=== PATIENT | male | born 1955 | race Caucasian/White ===

== ENCOUNTER 2016-08-15 14:12 | Emergency (ER) | payer MEDICAID, SELFPAY ==
[~2016-08-15] VITALS: Ht 180.3 cm; Wt 74.5 kg
[2016-08-15] MEDS ORDERED: ONDANSETRON 2MG/ML, 2ML IVPush ONE (15:30)
[2016-08-15] MEDS ORDERED: SODIUM CHLORIDE 0.9% 1,000ML IVBOLUS ONE (15:30)
[2016-08-15 16:02] LABS: HEMOGLOBIN 17.6 g/dL (13.7-18.0)
[2016-08-15 16:11] LABS: BLOOD UREA NITROGEN 10 mg/dL (7-18)
[2016-08-15 16:16] LABS: ASPARTATE AMINO TRANSFERASE 31 U/L (15-37)
[2016-08-15 16:17] LABS: IS PT STATUS REG ER OR PRE ER? YES
[2016-08-15] MEDS ORDERED: ONDANSETRON 2MG/ML, 2ML ONE (17:11)
[2016-08-15] MEDS ORDERED: DIPHENHYDRAMINE 50 MG/ML, 1ML IVPush ONE (17:30)
[2016-08-15] MEDS ORDERED: PROCHLORPERAZINE 5 MG/ML, 2ML IV ONE (17:30)
[2016-08-15] MEDS ORDERED: DIPHENHYDRAMINE 50 MG/ML, 1ML ONE (17:35)
[2016-08-15] MEDS ORDERED: PROCHLORPERAZINE 5 MG/ML, 2ML ONE (17:35)
[2016-08-15 20:03] VITALS: BP 138/97
== END 2016-08-15 20:06 | disposition home or self-care (01) ==
LOC: ED 18:56
DX: E86.0 Dehydration (principal); R11.2 Nausea with vomiting, unspecified; R51 Headache; H53.8 Other visual disturbances; R10.84 Generalized abdominal pain; Z98.890 Other specified postprocedural states
CPT/HCPCS: 36415; 70450; 74022; 80053; 84484; 85025; 93005; 96374; 96375; 99285; J0780; J1200; J2405; J7030

== ENCOUNTER 2019-03-13 07:22 | Inpatient (IN) | payer MEDICAID ==
[~2019-03-13] VITALS: Ht 180.3 cm; Wt 77.7 kg
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
--- NOTE | 2019-03-13 07:48 | NUR ---
PIV INITIATED, LABS DRAWN AND SENT TO LAB. ATTEMPTED TO OBTAIN UA, PT STAES " IM INTOO MUCH PAIN TO GO". PT MEDICATED PER JUL, TECH HERE TO TAKE PT TO CT
[2019-03-13] MEDS ORDERED: ONDANSETRON 2MG/ML, 2ML ONE (07:49)
[2019-03-13] MEDS ORDERED: HYDROmorphone 1 MG/ML, 1ML VIAL ONE ×2 (07:49→09:49)
[2019-03-13] MEDS: HYDROmorphone 2 MG/ML, 1ML IVPush PRN ×2 (07:51→09:52)
[2019-03-13 07:54] LABS: BASOPHILS # (AUTO) 0.03 x10^3/uL (0-0.1); BASOPHILS % (AUTO) 0 % (0-1); EOSINOPHILS # (AUTO) 0.02 x10^3/uL (0-0.4); EOSINOPHILS % (AUTO) 0 % (1-7); LYMPHOCYTES # (AUTO) 0.64 x10^3/uL (1-3.4); LYMPHOCYTES % (AUTO) 4 % (22-44); MD NO; MEAN CORPUSCULAR HEMOGLOBIN 29.2 pg (27.5-34.5); MEAN CORPUSCULAR HGB CONC 33.4 g/dL (33.2-36.2); MEAN CORPUSCULAR VOLUME 87.2 fL (81-97); MEAN PLATELET VOLUME 7.3 fL (7.4-10.4); MONOCYTES # (AUTO) 1.21 x10^3/uL (0.2-0.8); MONOCYTES % (AUTO) 8 % (2-9); NEUTROPHILS # (AUTO) 13.76 x10^3/uL (1.8-6.8); NEUTROPHILS % (AUTO) 88 % (42-75); PLATELET COUNT 232 x10^3/uL (130-400); RED BLOOD COUNT 5.41 x10^6/uL (4.38-5.82); RED CELL DISTRIBUTION WIDTH 15.1 % (9.4-14.8)
[2019-03-13] MEDS ORDERED: SODIUM CHLORIDE FLUSH 10ML SYR IVF ONE (08:00)
[2019-03-13] MEDS ORDERED: ONDANSETRON 2MG/ML, 2ML IVPush ONE (08:00)
[2019-03-13 08:04] LABS: ALBUMIN 3.3 g/dL (3.4-5.0); ANION GAP 6 mmol/L (5-15); CALCIUM 9.3 mg/dL (8.5-10.1); CHLORIDE 108 mmol/L (98-107); CREATININE 1.32 mg/dL (0.7-1.3)
[2019-03-13 08:30] LABS: MICROSCOPIC INDICATED
[2019-03-13 08:36] LABS: CULTURE INDICATED? YES
--- NOTE | 2019-03-13 08:41 | NUR ---
PT BACK FROM CT, PT APPEARS MUCH MORE COMFORTABLE, RESTING ON BED. FRIEND AT BEDSIDE, ROGER NOTED
[2019-03-13] MEDS ORDERED: CEFTRIAXONE PMX 2GM/50ML 50 ML IV SCH (09:30)
--- NOTE | 2019-03-13 09:32 | NUR ---
PT RESTING ON ROGER MEDINA NOTED AT THIS TIME, ADDITIONAL ORDERS RECIEVED. AWAITING BC TO BE DRAWN TO MEDICATE PT.
[2019-03-13] MEDS ORDERED: CEFTRIAXONE PMX 2GM/50ML 50 ML ONE (09:49)
--- NOTE | 2019-03-13 10:13 | NUR ---
PT WITH ADMISSION ORDERS, MEDICATED AGAIN FOR PAIN PER NORMAN, ABRIL PINA. NAD NOTED
--- NOTE | 2019-03-13 10:29 | NUR ---
ADMITTING MD IN TO SEE PT
[2019-03-13] MEDS ORDERED: SODIUM CHLORIDE FLUSH 10ML SYR IVF PRN (10:30)
--- NOTE | 2019-03-13 10:52 | NUR ---
REPORT GIVEN TO RECRENEE PIMENTEL
[2019-03-13] MEDS ORDERED: ACETAMINOPHEN 325 MG TABLET PO PRN (11:00)
[2019-03-13 11:38] VITALS: BP 173/75
[2019-03-13] MEDS: morphine SULFATE 10 MG/ML, 1ML IVPush PRN ×3 (11:44→12:13)
[2019-03-13] MEDS: SODIUM CHLORIDE 0.9% 1,000 ML IV SCH ×2 (11:45→18:47)
[2019-03-13] MEDS: CEFTRIAXONE PMX 2GM/50ML 50 ML IV SCH (12:00)
[2019-03-13] MEDS: hydrALAzine 20 MG/ML, 1ML IVPush PRN (12:03)
[2019-03-13] MEDS: NICOTINE 21 MG/24 HR PATCH.TD24 TD SCH (12:13)
[2019-03-13 13:40] VITALS: BP 153/101
[2019-03-13] MEDS ORDERED: FENTANYL PF 100 MCG/2ML ONE (14:57)
[2019-03-13] MEDS ORDERED: ACETAMINOPHEN 500 MG TABLET PO ONE (15:00)
[2019-03-13] MEDS ORDERED: FENTANYL PF 100 MCG/2ML IV PRN (16:00)
[2019-03-13] MEDS ORDERED: ONDANSETRON 2MG/ML, 2ML IV PRN (16:00)
[2019-03-13] MEDS ORDERED: LABETALOL 5MG/ML, 20ML IV PRN (16:00)
[2019-03-13] MEDS ORDERED: MEPERIDINE/PF 25MG/ML,1ML IVPush PRN (16:00)
[2019-03-13] MEDS ORDERED: hydrALAzine 20 MG/ML, 1ML IV PRN (16:00)
[2019-03-13] MEDS ORDERED: EPHEDRINE 50 MG/ML, 1ML IVPush PRN (16:00)
[2019-03-13] MEDS ORDERED: HYDROmorphone 2 MG/ML, 1ML IVPush PRN (16:00)
[2019-03-13] MEDS ORDERED: OXYcodone 5 MG/5 ML ORAL.SOL UDC PO PRN (16:00)
[2019-03-13] MEDS ORDERED: PROMETHAZINE 25 MG/ML, 1ML IV PRN (16:00)
[2019-03-13] MEDS ORDERED: LIDOCAINE-MPF 2% ,5ML ONE (16:09)
[2019-03-13] MEDS ORDERED: PHENYLEPHRINE 10 MG/ML ONE (16:09)
[2019-03-13] MEDS ORDERED: PROPOFOL 10 MG/ML, 20ML ONE (16:09)
[2019-03-13] MEDS ORDERED: DEXAMETHASONE 4 MG/ML, 1ML ONE (16:09)
[2019-03-13] MEDS: METOPROLOL TARTRATE 25 MG TABLET PO SCH (18:48)
[2019-03-14] MEDS: SODIUM CHLORIDE 0.9% 1,000 ML IV SCH ×4 (02:19→23:25)
[2019-03-14 04:44] LABS: MEAN CORPUSCULAR HEMOGLOBIN 28.7 pg (27.5-34.5); MEAN CORPUSCULAR HGB CONC 32.3 g/dL (33.2-36.2); MEAN CORPUSCULAR VOLUME 89.1 fL (81-97); MEAN PLATELET VOLUME 7.8 fL (7.4-10.4); PLATELET COUNT 181 x10^3/uL (130-400); RED BLOOD COUNT 5.28 x10^6/uL (4.38-5.82)
[2019-03-14 04:56] LABS: ALANINE AMINOTRANSFERASE 28 U/L (12-78); ALBUMIN 2.5 g/dL (3.4-5.0); ANION GAP 5 mmol/L (5-15); CALCIUM 8.9 mg/dL (8.5-10.1); CHLORIDE 114 mmol/L (98-107); CREATININE 1.21 mg/dL (0.7-1.3)
[2019-03-14 04:58] LABS: ALKALINE PHOSPHATASE 91 U/L (45-117); BILIRUBIN,TOTAL 0.8 mg/dL (0.2-1.0); TOTAL PROTEIN 6.4 g/dL (6.4-8.2)
[2019-03-14 05:02] LABS: BASOPHILS # (AUTO) 0.01 x10^3/uL (0-0.1); BASOPHILS % (AUTO) 0 % (0-1); EOSINOPHILS # (AUTO) 0.03 x10^3/uL (0-0.4); EOSINOPHILS % (AUTO) 0 % (1-7); LYMPHOCYTES # (AUTO) 0.66 x10^3/uL (1-3.4); LYMPHOCYTES % (AUTO) 3 % (22-44); MD SCAN; MONOCYTES # (AUTO) 1.19 x10^3/uL (0.2-0.8); MONOCYTES % (AUTO) 6 % (2-9); NEUTROPHILS # (AUTO) 19.76 x10^3/uL (1.8-6.8); NEUTROPHILS % (AUTO) 91 % (42-75)
[2019-03-14] MEDS: METOPROLOL TARTRATE 25 MG TABLET PO SCH ×2 (06:21→17:44)
[2019-03-14] MEDS: NICOTINE 21 MG/24 HR PATCH.TD24 TD SCH (13:11)
[2019-03-14] MEDS: CEFTRIAXONE PMX 2GM/50ML 50 ML IV SCH (13:14)
[2019-03-14] MEDS: METHOCARBAMOL 500 MG TABLET PO PRN (20:16)
[2019-03-14] MEDS: morphine SULFATE 10 MG/ML, 1ML IVPush PRN (20:53)
[2019-03-15] MEDS ORDERED: ONDANSETRON 2MG/ML, 2ML IVPush PRN
[2019-03-15] MEDS: morphine SULFATE 10 MG/ML, 1ML IVPush PRN ×4 (00:16→11:52)
[2019-03-15 01:14] VITALS: BP 112/74
[2019-03-15 05:28] LABS: MEAN CORPUSCULAR HGB CONC 32.7 g/dL (33.2-36.2); MEAN CORPUSCULAR VOLUME 88.6 fL (81-97); MEAN PLATELET VOLUME 7.8 fL (7.4-10.4); PLATELET COUNT 178 x10^3/uL (130-400); RED BLOOD COUNT 4.63 x10^6/uL (4.38-5.82)
[2019-03-15 05:39] LABS: ANION GAP 5 mmol/L (5-15); CALCIUM 8.6 mg/dL (8.5-10.1); CHLORIDE 113 mmol/L (98-107)
[2019-03-15 05:40] LABS: CREATININE 0.88 mg/dL (0.7-1.3)
[2019-03-15 05:52] LABS: BASOPHILS # (AUTO) 0.02 x10^3/uL (0-0.1); BASOPHILS % (AUTO) 0 % (0-1); EOSINOPHILS # (AUTO) 0.03 x10^3/uL (0-0.4); EOSINOPHILS % (AUTO) 0 % (1-7); LYMPHOCYTES # (AUTO) 0.97 x10^3/uL (1-3.4); LYMPHOCYTES % (AUTO) 6 % (22-44); MD SCAN; MONOCYTES # (AUTO) 1.34 x10^3/uL (0.2-0.8); MONOCYTES % (AUTO) 8 % (2-9); NEUTROPHILS # (AUTO) 13.71 x10^3/uL (1.8-6.8); NEUTROPHILS % (AUTO) 85 % (42-75)
[2019-03-15] MEDS: METOPROLOL TARTRATE 25 MG TABLET PO SCH ×2 (06:40→18:19)
[2019-03-15 07:34] VITALS: BP 119/72
[2019-03-15] MEDS: METHOCARBAMOL 500 MG TABLET PO PRN (09:34)
[2019-03-15] MEDS ORDERED: OPIUM/BELLADONNA SUPP.RECT 16.2-30 MG PR PRN (11:00)
[2019-03-15 12:18] VITALS: BP 156/96
[2019-03-15] MEDS: CEFTRIAXONE PMX 2GM/50ML 50 ML IV SCH (12:52)
[2019-03-15] MEDS: NICOTINE 21 MG/24 HR PATCH.TD24 TD SCH (12:52)
[2019-03-15 18:09] VITALS: BP 152/74
[2019-03-15] MEDS: HYDROcodone/APAP 5/325 TABLET PO PRN ×2 (18:18→22:46)
[2019-03-15 18:31] VITALS: BP 106/61
[2019-03-15] MEDS: PIPERACILLIN/TAZO/PMX 3.375GM 50 ML IV SCH (19:21)
[2019-03-16] VITALS (8 sets, daily range): BP systolic 116–196; BP diastolic 71–107
[2019-03-16] MEDS: PIPERACILLIN/TAZO/PMX 3.375GM 50 ML IV SCH ×4 (01:17→21:45)
[2019-03-16] MEDS: HYDROcodone/APAP 5/325 TABLET PO PRN ×2 (02:52→07:11)
[2019-03-16] MEDS: SODIUM CHLORIDE 0.9% 1,000 ML IV SCH ×2 (05:01→21:46)
[2019-03-16 05:37] LABS: CHLORIDE 111 mmol/L (98-107)
[2019-03-16 05:45] LABS: BASOPHILS # (AUTO) 0.02 x10^3/uL (0-0.1); BASOPHILS % (AUTO) 0 % (0-1); EOSINOPHILS # (AUTO) 0.12 x10^3/uL (0-0.4); EOSINOPHILS % (AUTO) 1 % (1-7); LYMPHOCYTES # (AUTO) 1.16 x10^3/uL (1-3.4); LYMPHOCYTES % (AUTO) 11 % (22-44); MD NO; MEAN CORPUSCULAR HEMOGLOBIN 29.3 pg (27.5-34.5); MEAN CORPUSCULAR HGB CONC 32.8 g/dL (33.2-36.2); MEAN CORPUSCULAR VOLUME 89.2 fL (81-97); MEAN PLATELET VOLUME 8.4 fL (7.4-10.4); MONOCYTES # (AUTO) 1.13 x10^3/uL (0.2-0.8); MONOCYTES % (AUTO) 11 % (2-9); NEUTROPHILS # (AUTO) 8.03 x10^3/uL (1.8-6.8); NEUTROPHILS % (AUTO) 77 % (42-75); PLATELET COUNT 183 x10^3/uL (130-400); RED BLOOD COUNT 4.47 x10^6/uL (4.38-5.82)
[2019-03-16 05:52] LABS: ANION GAP 8 mmol/L (5-15); CALCIUM 8.8 mg/dL (8.5-10.1); CREATININE 0.95 mg/dL (0.7-1.3)
[2019-03-16] MEDS: METOPROLOL TARTRATE 25 MG TABLET PO SCH ×2 (06:52→17:06)
[2019-03-16] MEDS: hydrALAzine 20 MG/ML, 1ML IVPush PRN (15:08)
[2019-03-16] MEDS: morphine SULFATE 10 MG/ML, 1ML IVPush PRN ×3 (15:41→16:35)
[2019-03-16 15:58] LABS: TROPONIN I < 0.015 ng/mL (0.000-0.045)
[2019-03-16] MEDS ORDERED: OMNIPAQUE 350 MG/ML, 100ML BOTTLE ONE (16:28)
[2019-03-16] MEDS: NICOTINE 21 MG/24 HR PATCH.TD24 TD SCH (17:06)
[2019-03-16 22:16] LABS: TROPONIN I < 0.015 ng/mL (0.000-0.045)
[2019-03-17 01:00] VITALS: BP 129/79
[2019-03-17] MEDS: SODIUM CHLORIDE 0.9% 1,000 ML IV SCH ×2 (02:39→12:45)
[2019-03-17] MEDS: PIPERACILLIN/TAZO/PMX 3.375GM 50 ML IV SCH ×4 (03:53→21:07)
[2019-03-17 03:57] LABS: BASOPHILS # (AUTO) 0.05 x10^3/uL (0-0.1); BASOPHILS % (AUTO) 1 % (0-1); EOSINOPHILS # (AUTO) 0.09 x10^3/uL (0-0.4); EOSINOPHILS % (AUTO) 1 % (1-7); LYMPHOCYTES # (AUTO) 1.25 x10^3/uL (1-3.4); LYMPHOCYTES % (AUTO) 14 % (22-44); MD NO; MEAN CORPUSCULAR HEMOGLOBIN 29.6 pg (27.5-34.5); MEAN CORPUSCULAR HGB CONC 33.6 g/dL (33.2-36.2); MEAN CORPUSCULAR VOLUME 88.2 fL (81-97); MEAN PLATELET VOLUME 7.7 fL (7.4-10.4); MONOCYTES # (AUTO) 1.29 x10^3/uL (0.2-0.8); MONOCYTES % (AUTO) 14 % (2-9); NEUTROPHILS # (AUTO) 6.38 x10^3/uL (1.8-6.8); NEUTROPHILS % (AUTO) 71 % (42-75); PLATELET COUNT 219 x10^3/uL (130-400); RED BLOOD COUNT 4.75 x10^6/uL (4.38-5.82); RED CELL DISTRIBUTION WIDTH 15.4 % (9.4-14.8)
[2019-03-17 04:09] LABS: ALANINE AMINOTRANSFERASE 45 U/L (12-78); ALBUMIN 2.3 g/dL (3.4-5.0); ANION GAP 8 mmol/L (5-15); CALCIUM 8.8 mg/dL (8.5-10.1); CHLORIDE 111 mmol/L (98-107)
[2019-03-17 04:14] LABS: ALKALINE PHOSPHATASE 96 U/L (45-117); BILIRUBIN,TOTAL 1.4 mg/dL (0.2-1.0); CREATININE 0.93 mg/dL (0.7-1.3); TOTAL PROTEIN 6.4 g/dL (6.4-8.2); TROPONIN I < 0.015 ng/mL (0.000-0.045)
[2019-03-17 07:04] VITALS: BP 151/81
[2019-03-17] MEDS: METOPROLOL TARTRATE 25 MG TABLET PO SCH ×2 (08:00→17:39)
[2019-03-17] MEDS: NICOTINE 21 MG/24 HR PATCH.TD24 TD SCH (13:00)
[2019-03-17] MEDS ORDERED: ZIPRASIDONE 20 MG INJ IM PRN (17:30)
[2019-03-17] MEDS: ENOXAPARIN 40 MG/0.4 ML SQ SCH (21:07)
[2019-03-17 21:48] VITALS: BP 156/99
[2019-03-18 00:28] VITALS: BP 168/99
[2019-03-18] MEDS: SODIUM CHLORIDE 0.9% 1,000 ML IV SCH ×2 (02:45→14:13)
[2019-03-18] MEDS: PIPERACILLIN/TAZO/PMX 3.375GM 50 ML IV SCH ×4 (02:45→20:33)
[2019-03-18] MEDS: METOPROLOL TARTRATE 25 MG TABLET PO SCH ×2 (03:44→18:33)
[2019-03-18 05:10] LABS: MEAN CORPUSCULAR HEMOGLOBIN 29.2 pg (27.5-34.5); MEAN CORPUSCULAR HGB CONC 33.5 g/dL (33.2-36.2); MEAN CORPUSCULAR VOLUME 87.3 fL (81-97); MEAN PLATELET VOLUME 7.7 fL (7.4-10.4); PLATELET COUNT 253 x10^3/uL (130-400); RED BLOOD COUNT 5.03 x10^6/uL (4.38-5.82); RED CELL DISTRIBUTION WIDTH 15.3 % (9.4-14.8)
[2019-03-18 05:23] LABS: ANION GAP 11 mmol/L (5-15); CHLORIDE 110 mmol/L (98-107)
[2019-03-18 05:28] LABS: ALANINE AMINOTRANSFERASE 33 U/L (12-78); ALBUMIN 2.4 g/dL (3.4-5.0); ALKALINE PHOSPHATASE 94 U/L (45-117); BILIRUBIN,TOTAL 1.5 mg/dL (0.2-1.0); CALCIUM 8.7 mg/dL (8.5-10.1); CREATININE 0.81 mg/dL (0.7-1.3); TOTAL PROTEIN 6.7 g/dL (6.4-8.2)
[2019-03-18 05:38] LABS: BASOPHILS # (AUTO) 0.08 x10^3/uL (0-0.1); BASOPHILS % (AUTO) 1 % (0-1); EOSINOPHILS # (AUTO) 0.07 x10^3/uL (0-0.4); EOSINOPHILS % (AUTO) 1 % (1-7); LYMPHOCYTES # (AUTO) 1.04 x10^3/uL (1-3.4); LYMPHOCYTES % (AUTO) 11 % (22-44); MD SCAN; MONOCYTES # (AUTO) 1.31 x10^3/uL (0.2-0.8); MONOCYTES % (AUTO) 14 % (2-9); NEUTROPHILS # (AUTO) 7.04 x10^3/uL (1.8-6.8); NEUTROPHILS % (AUTO) 74 % (42-75)
[2019-03-18 08:45] VITALS: BP 133/83
[2019-03-18 13:40] VITALS: BP 123/73
[2019-03-18] MEDS: NICOTINE 21 MG/24 HR PATCH.TD24 TD SCH (14:16)
[2019-03-18 18:38] VITALS: BP 169/82
[2019-03-18] MEDS: hydrALAzine 20 MG/ML, 1ML IVPush PRN (18:38)
[2019-03-18] MEDS: ENOXAPARIN 40 MG/0.4 ML SQ SCH (20:31)
[2019-03-18] MEDS: TEMAZEPAM 15 MG CAPSULE PO PRN ×2 (20:31→22:55)
[2019-03-19] MEDS: SODIUM CHLORIDE 0.9% 1,000 ML IV SCH ×3 (00:59→21:14)
[2019-03-19] MEDS: PIPERACILLIN/TAZO/PMX 3.375GM 50 ML IV SCH ×4 (03:09→21:14)
[2019-03-19 03:34] VITALS: BP 159/93
[2019-03-19] MEDS: METOPROLOL TARTRATE 25 MG TABLET PO SCH ×2 (05:24→17:34)
[2019-03-19 06:19] LABS: BASOPHILS # (AUTO) 0.03 x10^3/uL (0-0.1); BASOPHILS % (AUTO) 0 % (0-1); EOSINOPHILS # (AUTO) 0.17 x10^3/uL (0-0.4); EOSINOPHILS % (AUTO) 2 % (1-7); LYMPHOCYTES # (AUTO) 1.43 x10^3/uL (1-3.4); LYMPHOCYTES % (AUTO) 16 % (22-44); MD NO; MEAN CORPUSCULAR HEMOGLOBIN 29.2 pg (27.5-34.5); MEAN CORPUSCULAR HGB CONC 33.4 g/dL (33.2-36.2); MEAN CORPUSCULAR VOLUME 87.2 fL (81-97); MEAN PLATELET VOLUME 7.6 fL (7.4-10.4); MONOCYTES # (AUTO) 1.16 x10^3/uL (0.2-0.8); MONOCYTES % (AUTO) 13 % (2-9); NEUTROPHILS # (AUTO) 6.28 x10^3/uL (1.8-6.8); NEUTROPHILS % (AUTO) 69 % (42-75); PLATELET COUNT 280 x10^3/uL (130-400); RED BLOOD COUNT 5.23 x10^6/uL (4.38-5.82); RED CELL DISTRIBUTION WIDTH 15.5 % (9.4-14.8)
[2019-03-19 06:30] LABS: ALANINE AMINOTRANSFERASE 28 U/L (12-78); ALBUMIN 2.5 g/dL (3.4-5.0); ANION GAP 8 mmol/L (5-15); CHLORIDE 110 mmol/L (98-107); CREATININE 0.88 mg/dL (0.7-1.3)
[2019-03-19 06:32] LABS: ALKALINE PHOSPHATASE 94 U/L (45-117); BILIRUBIN,TOTAL 1.1 mg/dL (0.2-1.0); TOTAL PROTEIN 6.8 g/dL (6.4-8.2)
[2019-03-19 07:47] VITALS: BP 151/90
[2019-03-19] MEDS ORDERED: POTASSIUM CHLORIDE 20 MEQ TAB.ER.PRT PO ONE (10:30)
[2019-03-19 14:12] VITALS: BP 150/76
[2019-03-19] MEDS: NICOTINE 21 MG/24 HR PATCH.TD24 TD SCH (15:07)
[2019-03-19 17:32] VITALS: BP 154/100
[2019-03-19] MEDS: morphine SULFATE 10 MG/ML, 1ML IVPush PRN (17:35)
[2019-03-19 19:34] VITALS: BP 161/91
[2019-03-19] MEDS: ENOXAPARIN 40 MG/0.4 ML SQ SCH (19:46)
[2019-03-19] MEDS: TEMAZEPAM 15 MG CAPSULE PO PRN ×2 (19:47→22:23)
[2019-03-20 01:02] VITALS: BP 146/89
[2019-03-20] MEDS: PIPERACILLIN/TAZO/PMX 3.375GM 50 ML IV SCH ×2 (02:38→08:27)
[2019-03-20 05:40] VITALS: BP 129/80
[2019-03-20] MEDS: METOPROLOL TARTRATE 25 MG TABLET PO SCH ×2 (05:41→18:10)
[2019-03-20 07:40] VITALS: BP 173/100
[2019-03-20 07:54] LABS: ANION GAP 9 mmol/L (5-15); CALCIUM 9.2 mg/dL (8.5-10.1); CHLORIDE 111 mmol/L (98-107); CREATININE 0.96 mg/dL (0.7-1.3)
[2019-03-20 08:25] VITALS: BP 149/92
[2019-03-20] MEDS: SODIUM CHLORIDE 0.9% 1,000 ML IV SCH (08:27)
[2019-03-20] MEDS ORDERED: HALOPERIDOL 5 MG/ML IM PRN (08:30)
[2019-03-20] MEDS ORDERED: TRAZODONE 50MG TABLET PO PRN (08:30)
[2019-03-20] MEDS: HYDROcodone/APAP 5/325 TABLET PO PRN (08:37)
[2019-03-20 12:07] LABS: HCT (SEDRATE) 46.5 % (39.2-51.8)
[2019-03-20] MEDS: AMPICILLIN/SULBACTAM 3 GM in SODIUM CHLORIDE 0.9% 100 ML IV SCH ×2 (12:37→18:11)
[2019-03-20] MEDS: morphine SULFATE 10 MG/ML, 1ML IVPush PRN ×3 (12:37→20:59)
[2019-03-20 13:22] VITALS: BP 130/83
[2019-03-20] MEDS: NICOTINE 21 MG/24 HR PATCH.TD24 TD SCH (14:31)
[2019-03-20 19:30] VITALS: BP 136/79
[2019-03-20] MEDS: ENOXAPARIN 40 MG/0.4 ML SQ SCH (20:55)
[2019-03-21] MEDS: SODIUM CHLORIDE 0.9% 1,000 ML IV SCH ×2 (00:28→16:23)
[2019-03-21] MEDS: AMPICILLIN/SULBACTAM 3 GM in SODIUM CHLORIDE 0.9% 100 ML IV SCH ×3 (00:28→16:23)
[2019-03-21 00:35] VITALS: BP 152/75
[2019-03-21 06:25] VITALS: BP 143/84
[2019-03-21] MEDS: METOPROLOL TARTRATE 25 MG TABLET PO SCH (06:27)
[2019-03-21 07:05] VITALS: BP 155/86
[2019-03-21 11:50] VITALS: BP 158/84
[2019-03-21] MEDS: HYDROcodone/APAP 5/325 TABLET PO PRN (12:49)
[2019-03-21 13:55] VITALS: BP 123/77
[2019-03-21] MEDS ORDERED: AMOX1TAB64 PO (14:47)
[2019-03-21] MEDS: NICOTINE 21 MG/24 HR PATCH.TD24 TD SCH (16:23)
[2019-03-21] MEDS ORDERED: METOPROLOL TARTRATE 25 MG TABLET PO SCH (18:00)
== END 2019-03-21 17:43 | disposition home or self-care (01) | DRG 853 ==
LOC: ED 08:02 → EDIP 10:06 → 4NE 11:35 → CCU 18:20 → 4NE 03-14 17:09 → 5SO 03-16 16:33
PROVIDERS: ADMIT Internal Medicine; ATTEND Internal Medicine
PROC: 0T768DZ Dilation of Right Ureter with Intraluminal Device, Via Natural or Artificial Opening Endoscopic (ICD-10-PCS; principal; 2019-03-13 14:30)
PROC: 0T9B70Z Drainage of Bladder with Drainage Device, Via Natural or Artificial Opening (ICD-10-PCS; 2019-03-13 14:30)
DX: A41.4 Sepsis due to anaerobes (principal); G93.41 Metabolic encephalopathy; N13.6 Pyonephrosis; N17.9 Acute kidney failure, unspecified; E87.6 Hypokalemia; F17.210 Nicotine dependence, cigarettes, uncomplicated; I10 Essential (primary) hypertension; I16.0 Hypertensive urgency; Z85.51 Personal history of malignant neoplasm of bladder
CPT/HCPCS: 36415; 70100; 74018; 76000; 99285; J3490; 71045; 71275; 74176; 80048; 80053; 81001; 82040; 82962; 83605; 83735; 84100; 84484; 85025; 85651; 86140; 87040; 87076; 87081; 87086; 87177; 87209; 93005; G0378; J0295; J0696; J1100; J1170; J1650; J2405; J2543; J2704; J3010; J3486; Q9967; C1769; C2617; J0360; J2270; J2370; J7030